=== PATIENT | male | born 1950 | race Hispanic/Latino ===

== ENCOUNTER 2017-08-27 07:10 | Inpatient (IN) | payer OTHER ==
[~2017-08-27] VITALS: Ht 172.7 cm; Wt 85.3 kg
[2017-08-27] MEDS ORDERED: ONDANSETRON HCL 4 MG/2 ML VIAL ONE ×2 (07:32→07:34)
[2017-08-27] MEDS ORDERED: SODIUM CHLORIDE 0.9% 1000ML 1,000 ML IV ONE (07:33)
[2017-08-27] MEDS ORDERED: MAGNESIUM CITRATE 296 ML SOLUTION ONE (07:33)
[2017-08-27 07:38] LABS: BASOPHILS % (AUTO) 0.1 % (0.0-5.0); EOSINOPHILS % (AUTO) 0.3 % (0.0-8.0); HEMATOCRIT 47.6 % (42-54); LYMPHOCYTES % (AUTO) 8.7 % (21.0-51.0); MEAN CORPUSCULAR HEMOGLOBIN 28.5 pg (27.0-33.0); MEAN CORPUSCULAR HGB CONC 33.8 g/dL (32.0-36.0); MEAN CORPUSCULAR VOLUME 84.2 fL (79-99); MONOCYTES % (AUTO) 1.7 % (3.0-13.0); NEUTROPHILS % (AUTO) 89.2 % (40.0-77.0); RED BLOOD CELL COUNT(AUTO) 5.65 MIL/uL (4.50-6.20); RED CELL DISTRIBUTION WIDTH 14.2 % (11.0-15.5); WHITE BLOOD COUNT (AUTO) 9.3 K/uL (4.8-10.8)
[2017-08-27 07:57] LABS: POTASSIUM 4.8 mmol/L (3.5-5.1)
[2017-08-27 08:03] LABS: ALBUMIN 2.1 g/dL (3.5-5.0); BILIRUBIN,DIRECT 2.4 mg/dL (0.0-0.3); BILIRUBIN,TOTAL 3.4 mg/dL (0.2-1.0)
[2017-08-27 08:05] LABS: PLATELET COUNT (AUTO) 10 K/uL (130-400)
[2017-08-27] MEDS ORDERED: PANTOPRAZOLE SODIUM 40 MG TABLET.DR PO ONE (08:46)
[2017-08-27] MEDS ORDERED: DICYCLOMINE HCL 20 MG TAB ONE (08:46)
[2017-08-27 12:46] VITALS: BP 98/54
[2017-08-27 13:49] LABS: APPEARANCE,URINE Turbid (CLEAR); BILIRUBIN,URINE Small (NEGATIVE); COLOR,URINE Dark Yellow (YELLOW); GLUCOSE, URINE (UA) Negative (NEGATIVE); KETONES,URINE Negative (NEGATIVE); LEUKOCYTE ESTERASE ,URINE Trace (NEGATIVE); NITRATE,URINE Positive (NEGATIVE); OCCULT BLOOD,URINE Small (NEGATIVE); PROTEIN,URINE POS 1+ (NEGATIVE)
[2017-08-27 13:51] LABS: AMPHET/METH SCREEN,URINE NEGATIVE (NEGATIVE); BARBITURATE SCREEN, URINE NEGATIVE (NEGATIVE); BENZODIAZEPINES SCREEN,URINE NEGATIVE (NEGATIVE); CANNABINOID SCREEN,URINE NEGATIVE (NEGATIVE); COCAINE SCREEN,URINE NEGATIVE (NEGATIVE); OPIATE SCREEN,URINE NEGATIVE (NEGATIVE); PHENCYCLIDINE SCREEN,URINE NEGATIVE (NEGATIVE)
[2017-08-27 13:54] LABS: BACTERIA,URINE Few /HPF (None Seen); HYALINE CASTS, URINE 0-1 /LPF (0-1 /LPF); MUCUS,URINE Few LPF (None Seen); RBC,URINE 0-1 /HPF (0-1); SQUAMOUS EPITHELIAL CELL,UR Rare /LPF (0-2)
[2017-08-27 15:00] VITALS: BP 106/59
[2017-08-27] MEDS: SODIUM CHLORIDE 0.9% 1000ML 1,000 ML IV SCH (17:09)
[2017-08-27] MEDS ORDERED: COMPOUND IV REFRIGERATED 1 EACH IVSOLN MISC PRN (17:45)
[2017-08-27 18:20] LABS: THYROID STIMULATING HORMONE 0.53 uIU/mL (0.36-3.74)
[2017-08-27 18:46] LABS: INR 1.46 (0.85-1.15); PARTIAL THROMBOPLASTIN TIME 43.6 SEC (26.3-35.5); PROTHROMBIN TIME 15.2 SEC (9.6-11.6)
[2017-08-27 19:51] VITALS: BP 91/61
[2017-08-27] MEDS ORDERED: CEFTRIAXONE 1GM/D5W 50ML 50 ML IV SCH (20:00)
[2017-08-27] MEDS: WATER FOR INJECTION,STERILE 5 ML VIAL INJ SCH (23:15)
[2017-08-27] MEDS: CEFTRIAXONE SODIUM 1 GM IVP SCH (23:15)
[2017-08-27 23:44] VITALS: BP 94/62
[2017-08-28] VITALS (11 sets, daily range): BP systolic 67–122; BP diastolic 35–76
[2017-08-28 05:03] LABS: MEAN CORPUSCULAR HEMOGLOBIN 28.6 pg (27.0-33.0); MEAN CORPUSCULAR HGB CONC 33.4 g/dL (32.0-36.0); MEAN CORPUSCULAR VOLUME 85.7 fL (79-99); RED BLOOD CELL COUNT(AUTO) 5.49 MIL/uL (4.50-6.20); RED CELL DISTRIBUTION WIDTH 14.3 % (11.0-15.5); WHITE BLOOD COUNT (AUTO) 10.9 K/uL (4.8-10.8)
[2017-08-28 05:09] LABS: PLATELET COUNT (AUTO) 9 K/uL (130-400)
[2017-08-28 05:18] LABS: ALBUMIN 1.7 g/dL (3.5-5.0); BAND NEUTROPHILS % (MANUAL) 13 % (0-2); BILIRUBIN,DIRECT 2.8 mg/dL (0.0-0.3); BILIRUBIN,TOTAL 3.4 mg/dL (0.2-1.0); CREATININE 2.6 mg/dL (0.5-1.5); LYMPHOCYTES % (MANUAL) 14 % (22-44); MAN.DIFF COMMENT-IMPRESSION MANUAL DIFFERENTIAL; MONOCYTES % (MANUAL) 3 % (2-9); POTASSIUM 5.2 mmol/L (3.5-5.1); SEGMENTED NEUTROPHILS % 70 % (40-70); TOTAL PROTEIN, SERUM 4.2 g/dL (6.0-8.3)
[2017-08-28 05:19] LABS: PLATELET MORPHOLOGY COMMENT MARKED DECREASED
[2017-08-28 05:22] LABS: HEMOGLOBIN A1C 6.2 % (4.0-6.0)
[2017-08-28] MEDS ORDERED: PANTOPRAZOLE SODIUM 40 MG TABLET.DR PO SCH (07:30)
[2017-08-28] MEDS ORDERED: DEXAMETHASONE IV SCH (09:00)
[2017-08-28] MEDS ORDERED: SODIUM CHLORIDE 0.9% IV SCH (09:00)
[2017-08-28] MEDS: SODIUM CHLORIDE 0.9% 1000ML 1,000 ML IV SCH (10:15)
[2017-08-28] MEDS ORDERED: LIDOCAINE HCL 1% MDV 50ML VIAL ONE (11:42)
[2017-08-28] MEDS ORDERED: HEPARIN SODIUM 1000UNIT/ML 10ML VIAL ONE (11:42)
[2017-08-28] MEDS ORDERED: FENTANYL CITRATE PF 50 MCG/1 ML 2ML VIAL ONE (12:09)
[2017-08-28] MEDS ORDERED: MORPHINE SULFATE 2 MG/ML 1ML SYG IVP PRN (12:30)
[2017-08-28] MEDS ORDERED: NALOXONE HCL 0.4 MG/1 ML ML ONE (13:06)
[2017-08-28] MEDS ORDERED: SODIUM CHLORIDE 0.9% 1000ML 1,000 ML IV SCH (13:18)
[2017-08-28] MEDS ORDERED: NALOXONE HCL 0.4 MG/1 ML ML IVP SCH ×2 (13:50→15:00)
[2017-08-28 15:25] LABS: ABG BASE EXCESS -8.2 mmol/L (-2.0-3.0); ABG HCO3 12.9 mmol/L (21.0-28.0); ABG OXYGEN SATURATION 99.7 % (95.0-99.0); ABG PCO2 19 mmHg (35-48)
[2017-08-28] MEDS ORDERED: NOREPINEPHRINE 4MG/NS 250ML 250 ML IV SCH (18:15)
[2017-08-28] MEDS ORDERED: ALBUMIN (HUMAN) 25% 100 ML IV SCH (21:00)
[2017-08-28] MEDS ORDERED: MIDODRINE HCL 5 MG TABLET PO SCH (21:00)
[2017-08-28] MEDS: WATER FOR INJECTION,STERILE 5 ML VIAL INJ SCH (21:21)
[2017-08-28] MEDS: CEFTRIAXONE SODIUM 1 GM IVP SCH (21:21)
[2017-08-29] VITALS (7 sets, daily range): BP systolic 98–133; BP diastolic 49–71
[2017-08-29 04:00] LABS: BILIRUBIN,URINE Small (NEGATIVE); COLOR,URINE Dark Yellow (YELLOW); GLUCOSE, URINE (UA) TRACE mg/dL (NEGATIVE); KETONES,URINE Negative (NEGATIVE); LEUKOCYTE ESTERASE ,URINE Trace (NEGATIVE); NITRATE,URINE Negative (NEGATIVE); OCCULT BLOOD,URINE Small (NEGATIVE); PROTEIN,URINE POS 1+ (NEGATIVE)
[2017-08-29 04:01] LABS: APPEARANCE,URINE CLOUDY (CLEAR)
[2017-08-29 04:17] LABS: HEMATOCRIT 49.1 % (42-54); MEAN CORPUSCULAR HEMOGLOBIN 28.8 pg (27.0-33.0); MEAN CORPUSCULAR HGB CONC 34.1 g/dL (32.0-36.0); MEAN CORPUSCULAR VOLUME 84.5 fL (79-99); PLATELET COUNT (AUTO) 12 K/uL (130-400); RED BLOOD CELL COUNT(AUTO) 5.81 MIL/uL (4.50-6.20); RED CELL DISTRIBUTION WIDTH 14.6 % (11.0-15.5); WHITE BLOOD COUNT (AUTO) 14.1 K/uL (4.8-10.8)
[2017-08-29 04:39] LABS: BACTERIA,URINE Moderate /HPF (None Seen); WBC,URINE 0-1 /HPF (0-1)
[2017-08-29 04:40] LABS: AMORPHOUS SEDIMENT,UR Moderate /LPF (None Seen); MUCUS,URINE Rare LPF (None Seen); SQUAMOUS EPITHELIAL CELL,UR 0-2 /LPF (0-2)
[2017-08-29 04:57] LABS: BAND NEUTROPHILS % (MANUAL) 11 % (0-2); LYMPHOCYTES % (MANUAL) 1 % (22-44); MAN.DIFF COMMENT-IMPRESSION MANUAL DIFFERENTIAL; MONOCYTES % (MANUAL) 1 % (2-9); REACTIVE LYMPHOCYTES 1 % (0-0); SEGMENTED NEUTROPHILS % 86 % (40-70)
[2017-08-29 05:15] LABS: ALBUMIN 1.9 g/dL (3.5-5.0); BILIRUBIN,DIRECT 3.6 mg/dL (0.0-0.3); BILIRUBIN,TOTAL 4.5 mg/dL (0.2-1.0); CREATININE 3.7 mg/dL (0.5-1.5); MAGNESIUM 3.1 mg/dL (1.80-2.40); PHOSPHORUS 7.1 mg/dL (2.5-4.9); POTASSIUM 5.6 mmol/L (3.5-5.1); THYROID STIMULATING HORMONE 0.71 uIU/mL (0.36-3.74); TOTAL PROTEIN, SERUM 4.1 g/dL (6.0-8.3); URIC ACID 8.5 mg/dL (2.6-7.2)
[2017-08-29] MEDS ORDERED: AMIODARONE HCL 900MG/18ML IV ONE (05:34)
[2017-08-29] MEDS ORDERED: DEXTROSE 5%-WATER 1,000 ML IV ONE (05:35)
[2017-08-29] MEDS ORDERED: NOREPINEPHRINE BITARTRATE 1 MG/1 ML ML IV ONE (05:44)
[2017-08-29] MEDS ORDERED: SODIUM CHLORIDE 0.9% 250 ML IV ONE (05:44)
[2017-08-29] MEDS ORDERED: MIDAZOLAM 100MG-0.9% NS 100ML 100 ML IV PRN ×2 (06:08→06:15)
[2017-08-29] MEDS ORDERED: FENTANYL 2500MCG+NS 250ML 250 ML IV ONE (06:09)
[2017-08-29] MEDS ORDERED: FENTANYL 2500MCG+NS 250ML 250 ML IV PRN (06:15)
[2017-08-29 06:39] LABS: BASOPHILS % (AUTO) 0.4 % (0.0-5.0); EOSINOPHILS % (AUTO) 2.5 % (0.0-8.0); LYMPHOCYTES % (AUTO) 28.5 % (21.0-51.0); MEAN CORPUSCULAR HEMOGLOBIN 28.7 pg (27.0-33.0); MEAN CORPUSCULAR HGB CONC 31.6 g/dL (32.0-36.0); NEUTROPHILS % (AUTO) 63.6 % (40.0-77.0); RED CELL DISTRIBUTION WIDTH 15.7 % (11.0-15.5); WHITE BLOOD COUNT (AUTO) 5.9 K/uL (4.8-10.8)
[2017-08-29 06:44] LABS: HEMATOCRIT 20.9 % (42-54)
[2017-08-29 06:45] LABS: PLATELET COUNT (AUTO) 6 K/uL (130-400)
[2017-08-29 07:02] LABS: CHLORIDE 118 mmol/L (101-111); CREATININE 1.8 mg/dL (0.5-1.5); GLOMERULAR FILTR. RATE CALC 40 mL/min (>60); GLUCOSE,RANDOM 101 mg/dL (70-105); POTASSIUM 3.3 mmol/L (3.5-5.1); SODIUM SERUM 144 mmol/L (136-145); UREA NITROGEN, BLOOD 69 mg/dL (7-18)
[2017-08-29 07:32] LABS: ALANINE AMINOTRANSFERASE 122 U/L (12-78); ASPARTATE AMINOTRANSFERASE 149 U/L (10-37); BILIRUBIN,TOTAL 1.5 mg/dL (0.2-1.0); CREATINE KINASE MB 9.9 ng/mL (0.5-3.6); CREATINE KINASE, TOTAL 192 U/L (21-232); MYOGLOBIN 1082 ng/mL (10-92); TROPONIN I 0.19 ng/mL (0.00-0.06)
[2017-08-29 07:36] LABS: PROTHROMBIN TIME > 63.0 SEC (9.6-11.6)
[2017-08-29 07:37] LABS: INR > 7.00 (0.85-1.15)
[2017-08-29 07:42] LABS: CARBON DIOXIDE 9 mmol/L (21-32)
[2017-08-29] MEDS ORDERED: FOLIC ACID/VITAMIN B COMP W-C 1 MG CAPSULE PO SCH (09:00)
[2017-08-29] MEDS ORDERED: THIAMINE HCL 100 MG/ML 2ML VIAL IVP SCH (09:00)
[2017-08-29 10:16] LABS: HEPATITIS A ANTIBODY IGM Negative (Negative); HEPATITIS B CORE IGM Negative (Negative); HEPATITIS Bs ANTIGEN SCREEN P Negative (Negative)
[2017-08-30 12:08] LABS: HEPATITIS A ANTIBODY IGM Negative (Negative); HEPATITIS B CORE IGM Negative (Negative); HEPATITIS Bs ANTIGEN SCREEN P Negative (Negative)
== END 2017-08-29 06:52 | disposition expired | DRG 871 ==
LOC: EDH 07:10 → EDHIP 09:15 → 3CH 12:17 → 2CH 08-28 17:52
PROVIDERS: ADMIT Family Medicine; ATTEND Family Medicine
PROC: 07DR3ZX Extraction of Iliac Bone Marrow, Percutaneous Approach, Diagnostic (ICD-10-PCS; principal; 2017-08-29)
PROC: 5A1935Z Respiratory Ventilation, Less than 24 Consecutive Hours (ICD-10-PCS; 2017-08-29)
PROC: 0BH17EZ Insertion of Endotracheal Airway into Trachea, Via Natural or Artificial Opening (ICD-10-PCS; 2017-08-29)
DX: A41.9 Sepsis, unspecified organism (principal); R65.21 Severe sepsis with septic shock; N17.9 Acute kidney failure, unspecified; E87.1 Hypo-osmolality and hyponatremia; D69.6 Thrombocytopenia, unspecified; E44.1 Mild protein-calorie malnutrition; E87.5 Hyperkalemia; N39.0 Urinary tract infection, site not specified; R17 Unspecified jaundice; K52.9 Noninfective gastroenteritis and colitis, unspecified; I12.9 Hypertensive chronic kidney disease with stage 1 through stage 4 chronic kidney disease, or unspecified chronic kidney disease; N18.9 Chronic kidney disease, unspecified; R73.9 Hyperglycemia, unspecified; M19.90 Unspecified osteoarthritis, unspecified site; E86.0 Dehydration; Z59.0 Homelessness; Z87.891 Personal history of nicotine dependence; Z68.28 Body mass index [BMI] 28.0-28.9, adult
CPT/HCPCS: 20220; 31500; 36415; 36600; 71045; 74176; 76705; 80048; 80053; 80074; 80076; 80305; 81001; 82550; 82553; 82607; 82747; 82803; 82948; 83036; 83615; 83690; 83735; 83874; 84100; 84443; 84484; 84550; 85025; 85610; 85730; 86701; 87040; 87390; 88184; 88185; 88305; 88313; 88333; 92950; 93005; 94002; J0282; J0696; J1100; J1644; J2310; J2405; J3010; J3490; J7030; J7070; P9046